=== PATIENT | female | born 1985 | race Caucasian/White ===

== ENCOUNTER → 2020-06-13 | Outpatient (CLI) | payer OTHER ==
[~2020-06-13] MED LIST: COVID-19 VACC, MRNA(MODERNA)/PF 100 MCG/0.5 ML VIAL IM ONE
== END | disposition home or self-care (01) ==
LOC: EDBD → VACCPMC 17:37
DX: Z23 Encounter for immunization (principal); Z20.822 Contact with and (suspected) exposure to COVID-19
CPT/HCPCS: 91301

== ENCOUNTER → 2020-07-11 | Outpatient (CLI) | payer OTHER | END | disposition home or self-care (01) | LOC: VACCPMC 11:13 | DX: Z23 Encounter for immunization (principal); Z20.822 Contact with and (suspected) exposure to COVID-19 ==